=== PATIENT | female | born 1930 | race Caucasian/White ===

== ENCOUNTER 2016-05-27 20:54 | Emergency (ER) | payer MEDICARE, SELFPAY ==
[~2016-05-27 20:54] MED LIST: BACLOFEN 10MG T10 MG PO; CARAFATE1 G/10 ML PO; CYMBALTA30 MG PO; FIORICET1 EACH PO; OXECTA7.5 MG PO; PLAVIX75 MG PO; PRILOSEC20 MG PO; VESICARE5 MG PO; ZESTRIL40 MG PO
[2016-05-27 21:38] LABS: BASOPHIL 0.2 % (0-2); EOSINOPHIL 4.7 % (0-7); HCT 37.3 % (37.0-47.0); MCH 26.5 pg (25.0-31.0); MCHC 32.2 g/dL (32.0-36.0); MCV 82.5 fL (78.0-100.0); MONOCYTE 8.9 % (0-12); NEUTROPHIL 72.2 % (41-80); PLT 246 K/uL (150-400); RBC 4.52 M/uL (4.20-5.40); RDW 13.9 % (11.5-14.0); WBC 12.3 K/uL (4.0-10.5)
[2016-05-27 21:55] LABS: ALBUMIN 4.4 g/dL (3.4-4.8); BILIRUBIN - TOTAL 0.3 mg/dL (0.1-1.0); CREATININE 0.9 mg/dL (0.5-1.0); LACTIC ACID 1.7 mmol/L (0.5-2.2); POTASSIUM 5.4 mmol/L (3.5-5.1); TOTAL PROTEIN 7.4 g/dL (6.4-8.3)
[2016-05-27 23:14] LABS: BILIRUBIN NEGATIVE (NEGATIVE); BLOOD NEGATIVE Ery/uL (NEGATIVE); CLARITY SLIGHTLY HAZY (CLEAR); COLOR YELLOW (YELLOW); GLUCOSE (U) NORMAL (NORMAL); KETONE (U) NEGATIVE (NEGATIVE); LEUKOCYTES TRACE Leu/uL (NEGATIVE); NITRITE NEGATIVE (NEGATIVE); PROTEIN NEGATIVE (NEGATIVE); UROBILINOGEN 0.2 mg/dL (0.2-1.0)
[2016-05-27 23:37] LABS: BACTERIA TRACE; TRANSITIONAL EPITHELIAL CELLS RARE
== END 2016-05-28 01:06 | disposition home or self-care (01) ==
LOC: FER 20:54
PROVIDERS: Emergency Medicine Emergency Medical Services
DX: R10.13 Epigastric pain (principal); R11.2 Nausea with vomiting, unspecified; E86.9 Volume depletion, unspecified; R82.90 Unspecified abnormal findings in urine; I10 Essential (primary) hypertension; Z87.440 Personal history of urinary (tract) infections; Z88.0 Allergy status to penicillin; Z88.2 Allergy status to sulfonamides; Z88.5 Allergy status to narcotic agent; Z79.899 Other long term (current) drug therapy; Z90.49 Acquired absence of other specified parts of digestive tract
CPT/HCPCS: 36415; 36600; 71010; 71275; 80053; 81001; 82150; 82803; 83605; 83690; 84484; 85025; 87040; 87088; 93005; C9113; J1170; J2405; Q9967

== ENCOUNTER 2016-06-03 15:50 | Emergency (ER) | payer MEDICARE, SELFPAY ==
[2016-06-03 17:49] LABS: BASOPHIL 0.3 % (0-2); EOSINOPHIL 7.8 % (0-7); HGB 12.3 g/dl (12.5-16.0); LYMPHOCYTE 19.8 % (15-48); MCH 26.5 pg (25.0-31.0); MCHC 32.4 g/dL (32.0-36.0); MCV 81.7 fL (78.0-100.0); MONOCYTE 7.3 % (0-12); MPV 10.1 fL (6.0-9.5); NEUTROPHIL 64.8 % (41-80); PLT 203 K/uL (150-400); RBC 4.65 M/uL (4.20-5.40); RDW 14.2 % (11.5-14.0); WBC 6.6 K/uL (4.0-10.5)
[2016-06-03 17:56] LABS: ALBUMIN 4.1 g/dL (3.4-4.8); BILIRUBIN - TOTAL 0.2 mg/dL (0.1-1.0); CREATININE 0.7 mg/dL (0.5-1.0); GLOBULIN (CALCULATION) 3.1 g/dL (2.2-4.2); POTASSIUM 4.6 mmol/L (3.5-5.1); TOTAL PROTEIN 7.2 g/dL (6.4-8.3)
== END 2016-06-03 19:00 | disposition home or self-care (01) ==
LOC: FER 15:50
PROVIDERS: Emergency Medicine
DX: R05 Cough (principal); R06.02 Shortness of breath; R07.9 Chest pain, unspecified; E03.9 Hypothyroidism, unspecified; Z79.899 Other long term (current) drug therapy
CPT/HCPCS: 36415; 71010; 80053; 85025; 87804; 87899

== ENCOUNTER 2020-07-09 15:48 | Emergency (ER) | payer MEDICARE ==
[~2020-07-09 15:48] MED LIST changes: +ALPRAZOLAM 0.50.5 MG PO; +ANUCORT-HC25 MG PR; +BENTYL10 MG PO; +CARAFATE1 GM PO; +CEFDINIR300 MG PO; +CIPRO250 MG PO; +CIPROFLOXACIN500 M1 PO; +CYMBALTA 30MG C30 MG PO; +GOLYTELY SOLU4000 ML PO; +KEFLEX250 MG PO; +LEVAQUIN250 MG PO; +ONDANSETRON ODT4 MG SL; +PEPCID AC20 MG PO; +PERCOCET 10/321 EACH PO; +PRINIVIL10 MG PO; +PYRIDIUM200 MG PO; +VIBRAMYCIN100 MG PO; +ZOFRAN4 MG PO; +ZOFRAN8 MG PO; +ZOLOFT50 MG PO
[2020-07-09 16:30] LABS: BASOPHIL 0.3 % (0-2); EOSINOPHIL 0.4 % (0-7); HCT 42.8 % (37.0-47.0); HGB 14.2 g/dl (12.5-16.0); LYMPHOCYTE 8.2 % (15-48); MCH 28.5 pg (25.0-31.0); MCHC 33.2 g/dL (32.0-36.0); MCV 85.8 fL (78.0-100.0); MONOCYTE 2.9 % (0-12); MPV 10.3 fL (6.0-9.5); NEUTROPHIL 87.9 % (41-80); NRBC 0; PLT 270 K/uL (150-400); RBC 4.99 M/uL (4.20-5.40); RDW 12.3 % (11.5-14.0); WBC 11.5 K/uL (4.0-10.5)
[2020-07-09 16:34] LABS: INR 0.99 (0.9-1.2); PROTHROMBIN TIME 12.4 SECONDS (11.4-13.6); PTT 28.1 SECONDS (22.2-34.7)
[2020-07-09 16:39] LABS: BILIRUBIN NEGATIVE (NEGATIVE); BLOOD 1+ Ery/uL (NEGATIVE); CLARITY CLEAR (CLEAR); COLOR YELLOW (YELLOW); GLUCOSE (U) NORMAL (NORMAL); LEUKOCYTES NEGATIVE Leu/uL (NEGATIVE); NITRITE NEGATIVE (NEGATIVE); PROTEIN 1+ mg/dL (NEGATIVE); SPECIFIC GRAVITY 1.025 (1.001-1.030); UROBILINOGEN 0.2 mg/dL (0.2-1.0)
[2020-07-09 16:48] LABS: BACTERIA 1+
[2020-07-09 16:57] LABS: ALBUMIN 3.6 g/dL (3.4-5.0); BILIRUBIN - TOTAL 0.2 mg/dL (0.2-1.0); BUN/CREAT RATIO (CALC) 17.2 RATIO; CREATININE 0.99 mg/dL (0.51-0.95); GLOBULIN (CALCULATION) 4.3 g/dL; POTASSIUM 4.6 mmol/L (3.5-5.1); TOTAL PROTEIN 7.9 g/dL (6.4-8.2)
[2020-07-09 17:00] LABS: LACTIC ACID 4.3 mmol/L (0.4-1.9)
== END 2020-07-09 22:01 | disposition other institution (70) ==
LOC: FER 15:48
PROVIDERS: Emergency Medicine
DX: G40.909 Epilepsy, unspecified, not intractable, without status epilepticus (principal); I10 Essential (primary) hypertension; Z88.0 Allergy status to penicillin; Z88.1 Allergy status to other antibiotic agents; Z88.2 Allergy status to sulfonamides; Z20.822 Contact with and (suspected) exposure to COVID-19
CPT/HCPCS: 36415; 70450; 71045; 80053; 81001; 83605; 84145; 85025; 85610; 85730; 87040; 87088; 93005; 96365; 96366; 96375; J0696; J1953; J2060; J2405; J3370; J7050; U0002

== ENCOUNTER 2021-04-12 09:17 | Inpatient (IN) | payer MEDICARE ==
[~2021-04-12] VITALS: Ht 160 cm; Wt 75.3 kg
[~2021-04-12 09:17] MED LIST changes: +KEPPRA750 MG PO; +PRINIVIL20 MG PO
[2021-04-12 10:23] LABS: BASOPHIL 0.3 % (0-2); EOSINOPHIL 2.4 % (0-7); HCT 39.4 % (37.0-47.0); HGB 12.4 g/dl (12.5-16.0); LYMPHOCYTE 22.5 % (15-48); MCH 27.4 pg (25.0-31.0); MCHC 31.5 g/dL (32.0-36.0); MONOCYTE 6.5 % (0-12); MPV 10.4 fL (6.0-9.5); NEUTROPHIL 67.8 % (41-80); NRBC 0; PLT 257 K/uL (150-400); RBC 4.53 M/uL (4.20-5.40); RDW 12.9 % (11.5-14.0); WBC 6.6 K/uL (4.0-10.5)
[2021-04-12 10:46] LABS: ALBUMIN 3.3 g/dL (3.4-5.0); BILIRUBIN - TOTAL 0.4 mg/dL (0.2-1.0); BUN/CREAT RATIO (CALC) 27.6 RATIO; C-REACTIVE PROTEIN 0.6 mg/dL (<=0.90); CREATININE 1.16 mg/dL (0.51-0.95); POTASSIUM 4.8 mmol/L (3.5-5.1); TOTAL PROTEIN 7.3 g/dL (6.4-8.2)
[2021-04-12 10:52] LABS: LACTIC ACID 1.9 mmol/L (0.4-1.9)
[2021-04-12 10:59] LABS: BILIRUBIN NEGATIVE (NEGATIVE); BLOOD NEGATIVE Ery/uL (NEGATIVE); CLARITY HAZY (CLEAR); COLOR YELLOW (YELLOW); GLUCOSE (U) NORMAL (NORMAL); LEUKOCYTES 3+ Leu/uL (NEGATIVE); NITRITE NEGATIVE (NEGATIVE); PROTEIN NEGATIVE (NEGATIVE); UROBILINOGEN 0.2 mg/dL (0.2-1.0)
[2021-04-12 11:13] LABS: URINARY RBC RARE; URINARY WBC TNTC
[2021-04-12 11:14] LABS: BACTERIA 4+; SQUAMOUS EPITHELIAL CELLS RARE
[2021-04-12 11:33] LABS: CORONAVIRUS 2019 SARS-COV-2 POSITIVE (NEGATIVE)
[2021-04-12 11:34] LABS: INFLUENZA A NAA NEGATIVE (NEGATIVE)
[2021-04-12] MEDS ORDERED: KEPPRA750 MG PO ×2 (23:03→23:23)
[2021-04-12] MEDS ORDERED: EFFEXOR-XR 75 M75 MG PO (23:04)
[2021-04-12] MEDS ORDERED: MILK OF MA2400 MG/10 PO (23:05)
[2021-04-12] MEDS ORDERED: PERCOCET 10-321 EACH PO (23:06)
[2021-04-13 06:21] LABS: BASOPHIL 0.3 % (0-2); EOSINOPHIL 3.5 % (0-7); HCT 32.3 % (37.0-47.0); HGB 10.2 g/dl (12.5-16.0); LYMPHOCYTE 23.8 % (15-48); MCH 27.7 pg (25.0-31.0); MCHC 31.6 g/dL (32.0-36.0); MCV 87.8 fL (78.0-100.0); NEUTROPHIL 64.2 % (41-80); NRBC 0; PLT 185 K/uL (150-400); RBC 3.68 M/uL (4.20-5.40); RDW 12.9 % (11.5-14.0); WBC 5.7 K/uL (4.0-10.5)
[2021-04-13 06:47] LABS: BUN/CREAT RATIO (CALC) 19.1 RATIO; CREATININE 1.1 mg/dL (0.51-0.95); POTASSIUM 4.6 mmol/L (3.5-5.1)
--- NOTE | 2021-04-13 12:28 | NUR ---
JORDON WITH [facility] STATED THAT PT. MAY RETURN BACK TO [facility], BUT WILL NEED A NEW INSURANCE AUTH. SENT UPDATED CLINICALS TO [facility] DR. VELAZCO PT. JULY D/C ON SATURDAY. ATTEMPTED PHONE CALL WITH DAUGHTERS, TIMUR AND JENNY TO CONFIRM DISCHARGE PLANS.
--- NOTE | 2021-04-13 13:10 | NUR ---
PER PT DAUGHTER, FANI DING. SHE STATED THAT PT. HAS A RW AND /. IF PT REQUIRES OXYGEN SHE WOULD LIKE FOR IT TO COME FROM [facility]. TIMUR REQUESTED [facility]. MADE REFERRAL TO [facility].
--- NOTE | 2021-04-14 14:59 | NUR ---
PER PRASANNA TAVERAS LIASON WITH [facility]. THEY WILL ACCEPT PATIENT. ADVISED HER THAT THE ANTICIPATED D/C WILL BE 04/17/21.
[2021-04-15] MEDS ORDERED: KEFLEX250 MG PO (11:32)
== END 2021-04-15 13:32 | disposition home or self-care (01) | DRG 177 ==
LOC: FER 09:17 → FMS 20:32
PROVIDERS: Emergency Medicine; Nurse Practitioner; ADMIT Internal Medicine
PROC: 8E0ZXY6 Isolation (ICD-10-PCS; 2021-04-12)
PROC: XW033E5 Introduction of Remdesivir Anti-infective into Peripheral Vein, Percutaneous Approach, New Technology Group 5 (ICD-10-PCS; principal; 2021-04-13)
DX: U07.1 COVID-19 (principal); J12.82 Pneumonia due to coronavirus disease 2019; G93.41 Metabolic encephalopathy; N39.0 Urinary tract infection, site not specified; B95.4 Other streptococcus as the cause of diseases classified elsewhere; I10 Essential (primary) hypertension; I48.91 Unspecified atrial fibrillation; K21.9 Gastro-esophageal reflux disease without esophagitis; F03.90 Unspecified dementia, unspecified severity, without behavioral disturbance, psychotic disturbance, mood disturbance, and anxiety; I25.10 Atherosclerotic heart disease of native coronary artery without angina pectoris; K59.09 Other constipation; M19.90 Unspecified osteoarthritis, unspecified site; Z96.643 Presence of artificial hip joint, bilateral; Z90.49 Acquired absence of other specified parts of digestive tract; Z98.42 Cataract extraction status, left eye; Z90.710 Acquired absence of both cervix and uterus; Z98.890 Other specified postprocedural states; Z88.0 Allergy status to penicillin; Z88.2 Allergy status to sulfonamides; Z88.5 Allergy status to narcotic agent; Z79.899 Other long term (current) drug therapy
CPT/HCPCS: 36415; 71045; 80048; 80053; 81001; 83605; 83690; 84145; 85025; 86140; 87040; 87088; 93005; 94760; 97162; 97166; 97530-GP; 97535; C9399; J0696; J1170; J1650; J2405; J7030; J7050; J7120; J8540; Q9967; U0002

== ENCOUNTER 2021-05-22 11:50 | Emergency (ER) | payer MEDICARE ==
[~2021-05-22 11:50] MED LIST changes: +EFFEXOR-XR 75 M75 MG PO; +MILK OF MA2400 MG/10 PO; +PERCOCET 10-321 EACH PO
[2021-05-22] MEDS ORDERED: CEPHALEXIN500 MG PO (15:11)
[2021-05-22 15:22] LABS: BILIRUBIN NEGATIVE (NEGATIVE); BLOOD NEGATIVE Ery/uL (NEGATIVE); CLARITY CLEAR (CLEAR); COLOR YELLOW (YELLOW); GLUCOSE (U) NORMAL (NORMAL); LEUKOCYTES NEGATIVE Leu/uL (NEGATIVE); NITRITE NEGATIVE (NEGATIVE); PROTEIN NEGATIVE (NEGATIVE); UROBILINOGEN 0.2 mg/dL (0.2-1.0); pH 7.5 (5.0-9.0)
== END 2021-05-22 15:20 | disposition home or self-care (01) ==
LOC: FER 11:50
PROVIDERS: Emergency Medicine
DX: R25.3 Fasciculation (principal); T36.8X5A Adverse effect of other systemic antibiotics, initial encounter; N39.0 Urinary tract infection, site not specified; I10 Essential (primary) hypertension; I48.91 Unspecified atrial fibrillation; Z88.0 Allergy status to penicillin; Z88.2 Allergy status to sulfonamides; Z88.1 Allergy status to other antibiotic agents; Z88.6 Allergy status to analgesic agent; Z79.899 Other long term (current) drug therapy
CPT/HCPCS: 81003; 87088; 99283

== ENCOUNTER 2021-08-05 04:44 | Emergency (ER) | payer MEDICARE ==
[~2021-08-05 04:44] MED LIST changes: +CEPHALEXIN500 MG PO
[2021-08-05 05:56] LABS: BILIRUBIN NEGATIVE (NEGATIVE); BLOOD 1+ Ery/uL (NEGATIVE); CLARITY CLEAR (CLEAR); COLOR YELLOW (YELLOW); GLUCOSE (U) NORMAL (NORMAL); LEUKOCYTES 3+ Leu/uL (NEGATIVE); NITRITE POSITIVE (NEGATIVE); PROTEIN NEGATIVE (NEGATIVE); SPECIFIC GRAVITY <=1.005 (1.001-1.030); UROBILINOGEN 0.2 mg/dL (0.2-1.0); pH 6.5 (5.0-9.0)
[2021-08-05 06:05] LABS: BACTERIA 4+; URINARY WBC TNTC
[2021-08-05 07:03] LABS: BASOPHIL 0.3 % (0-2); EOSINOPHIL 5.2 % (0-7); HCT 34.4 % (37.0-47.0); HGB 11.4 g/dl (12.5-16.0); LYMPHOCYTE 23.4 % (15-48); MCH 29.5 pg (25.0-31.0); MCHC 33.1 g/dL (32.0-36.0); MCV 89.1 fL (78.0-100.0); MONOCYTE 7.3 % (0-12); MPV 9.4 fL (6.0-9.5); NEUTROPHIL 63.2 % (41-80); NRBC 0; PLT 215 K/uL (150-400); RBC 3.86 M/uL (4.20-5.40); RDW 13.6 % (11.5-14.0); WBC 6.9 K/uL (4.0-10.5)
[2021-08-05 07:23] LABS: ALBUMIN 3.3 g/dL (3.4-5.0); BILIRUBIN - TOTAL 0.2 mg/dL (0.2-1.0); BUN/CREAT RATIO (CALC) 23.6 RATIO; CREATININE 1.23 mg/dL (0.51-0.95); GLOBULIN (CALCULATION) 3.7 g/dL; POTASSIUM 4.4 mmol/L (3.5-5.1)
[2021-08-05] MEDS ORDERED: CIPRO250 MG PO (08:07)
== END 2021-08-05 11:10 | disposition home or self-care (01) ==
LOC: FER 04:44
PROVIDERS: Internal Medicine
DX: N39.0 Urinary tract infection, site not specified (principal); I10 Essential (primary) hypertension; Z88.0 Allergy status to penicillin; Z88.1 Allergy status to other antibiotic agents; Z88.2 Allergy status to sulfonamides; Z88.5 Allergy status to narcotic agent; Z79.899 Other long term (current) drug therapy
CPT/HCPCS: 36415; 80053; 81001; 84145; 85025; 87076; 87088; 87186; J0696; J2405; J3010; J7030

== ENCOUNTER 2021-09-06 12:01 | Emergency (ER) | payer MEDICARE ==
[2021-09-06 13:10] LABS: CORONAVIRUS 2019 SARS-COV-2 POSITIVE (NEGATIVE); INFLUENZA A NAA NEGATIVE (NEGATIVE)
== END 2021-09-06 13:57 | disposition home or self-care (01) ==
LOC: FER 12:01
PROVIDERS: Emergency Medicine
DX: U07.1 COVID-19 (principal); Z88.0 Allergy status to penicillin; Z88.1 Allergy status to other antibiotic agents; Z88.2 Allergy status to sulfonamides; Z88.5 Allergy status to narcotic agent; Z28.310 Unvaccinated for COVID-19
CPT/HCPCS: 71045; U0002

== ENCOUNTER 2021-09-17 17:20 | Emergency (ER) | payer MEDICARE ==
[2021-09-17 18:49] LABS: BILIRUBIN NEGATIVE (NEGATIVE); BLOOD TRACE-INTACT Ery/uL (NEGATIVE); CLARITY CLEAR (CLEAR); COLOR YELLOW (YELLOW); GLUCOSE (U) NORMAL (NORMAL); LEUKOCYTES NEGATIVE Leu/uL (NEGATIVE); NITRITE NEGATIVE (NEGATIVE); PROTEIN NEGATIVE (NEGATIVE); UROBILINOGEN 0.2 mg/dL (0.2-1.0)
[2021-09-17 18:56] LABS: AMORPHOUS URATES CRYSTALS MODERATE; BACTERIA TRACE; URINARY WBC RARE
== END 2021-09-17 20:34 | disposition home or self-care (01) ==
LOC: FER 17:20
PROVIDERS: Physician Assistant
DX: M54.50 Low back pain, unspecified (principal); G89.29 Other chronic pain; I25.10 Atherosclerotic heart disease of native coronary artery without angina pectoris; I10 Essential (primary) hypertension; Z86.16 Personal history of COVID-19; Z88.0 Allergy status to penicillin; Z88.1 Allergy status to other antibiotic agents; Z88.2 Allergy status to sulfonamides; Z88.5 Allergy status to narcotic agent; Z79.899 Other long term (current) drug therapy
CPT/HCPCS: 72131; 81001

== ENCOUNTER 2021-09-19 22:27 | Emergency (ER) | payer MEDICARE ==
[2021-09-19 23:04] LABS: BASOPHIL 0.2 % (0-2); HCT 32.4 % (37.0-47.0); HGB 10.6 g/dl (12.5-16.0); LYMPHOCYTE 19.8 % (15-48); MCH 29.4 pg (25.0-31.0); MCHC 32.7 g/dL (32.0-36.0); MCV 89.8 fL (78.0-100.0); MONOCYTE 5.5 % (0-12); MPV 9.2 fL (6.0-9.5); NEUTROPHIL 69.1 % (41-80); NRBC 0; PLT 184 K/uL (150-400); RBC 3.61 M/uL (4.20-5.40); WBC 8.1 K/uL (4.0-10.5)
[2021-09-19 23:35] LABS: INR 0.99 (0.9-1.2); PROTHROMBIN TIME 12.8 SECONDS (11.9-13.9); PTT 27.6 SECONDS (24.9-34.6)
[2021-09-20 00:14] LABS: ALBUMIN 2.9 g/dL (3.4-5.0); BILIRUBIN - TOTAL 0.3 mg/dL (0.2-1.0); BUN/CREAT RATIO (CALC) 21.2 RATIO; CREATININE 1.13 mg/dL (0.51-0.95); GLOBULIN (CALCULATION) 3.6 g/dL; POTASSIUM 4.4 mmol/L (3.5-5.1); TOTAL PROTEIN 6.5 g/dL (6.4-8.2)
[2021-09-20] MEDS ORDERED: PEPCID40 MG PO (04:13)
[2021-09-20 04:31] LABS: BILIRUBIN NEGATIVE (NEGATIVE); BLOOD NEGATIVE Ery/uL (NEGATIVE); CLARITY CLEAR (CLEAR); COLOR YELLOW (YELLOW); GLUCOSE (U) NORMAL (NORMAL); LEUKOCYTES TRACE Leu/uL (NEGATIVE); NITRITE NEGATIVE (NEGATIVE); PROTEIN NEGATIVE (NEGATIVE); UROBILINOGEN 0.2 mg/dL (0.2-1.0); pH 7.5 (5.0-9.0)
[2021-09-20 04:42] LABS: SQUAMOUS EPITHELIAL CELLS RARE; URINARY RBC RARE; URINARY WBC RARE
== END 2021-09-20 05:45 | disposition home or self-care (01) ==
LOC: FER 22:27
PROVIDERS: Internal Medicine
DX: R07.89 Other chest pain (principal); I12.9 Hypertensive chronic kidney disease with stage 1 through stage 4 chronic kidney disease, or unspecified chronic kidney disease; N18.30 Chronic kidney disease, stage 3 unspecified; Z88.0 Allergy status to penicillin; Z88.2 Allergy status to sulfonamides; Z88.6 Allergy status to analgesic agent; Z28.310 Unvaccinated for COVID-19
CPT/HCPCS: 36415; 71045; 80053; 81001; 83690; 84484; 85025; 85610; 85730; 87088; 93005

== ENCOUNTER 2021-09-29 11:15 | Day surgery (SDCO) | payer MEDICARE ==
[~2021-09-29] VITALS: Ht 170.2 cm; Wt 81.4 kg
[~2021-09-29 11:15] MED LIST changes: +PEPCID40 MG PO
[2021-09-29 12:19] LABS: BASOPHIL 0.3 % (0-2); EOSINOPHIL 1.8 % (0-7); HCT 34.6 % (37.0-47.0); HGB 11.4 g/dl (12.5-16.0); LYMPHOCYTE 15.8 % (15-48); MCHC 32.9 g/dL (32.0-36.0); MONOCYTE 6.7 % (0-12); MPV 9.1 fL (6.0-9.5); NRBC 0; PLT 267 K/uL (150-400); RBC 3.93 M/uL (4.20-5.40); RDW 13.1 % (11.5-14.0); WBC 9.5 K/uL (4.0-10.5)
[2021-09-29 12:56] LABS: ALBUMIN 3.5 g/dL (3.4-5.0); BILIRUBIN - TOTAL 0.5 mg/dL (0.2-1.0); BUN/CREAT RATIO (CALC) 24.1 RATIO; CREATININE 1.37 mg/dL (0.51-0.95); POTASSIUM 4.3 mmol/L (3.5-5.1); TOTAL PROTEIN 7.5 g/dL (6.4-8.2)
[2021-09-29] MEDS ORDERED: PAXIL10 MG PO (20:55)
[2021-09-30 02:40] LABS: BILIRUBIN NEGATIVE (NEGATIVE); BLOOD NEGATIVE Ery/uL (NEGATIVE); CLARITY CLEAR (CLEAR); COLOR YELLOW (YELLOW); GLUCOSE (U) NORMAL (NORMAL); LEUKOCYTES NEGATIVE Leu/uL (NEGATIVE); NITRITE NEGATIVE (NEGATIVE); PROTEIN NEGATIVE (NEGATIVE); UROBILINOGEN 0.2 mg/dL (0.2-1.0)
[2021-09-30 08:16] LABS: HCT 30.7 % (37.0-47.0); HGB 9.9 g/dl (12.5-16.0); MCH 29.2 pg (25.0-31.0); MCHC 32.2 g/dL (32.0-36.0); MCV 90.6 fL (78.0-100.0); MPV 9.1 fL (6.0-9.5); RBC 3.39 M/uL (4.20-5.40); RDW 13.2 % (11.5-14.0); WBC 5.3 K/uL (4.0-10.5)
[2021-09-30] MEDS ORDERED: EFFEXOR-XR 75 M75 MG PO (09:27)
[2021-09-30 09:57] LABS: IRON % SATURATION 25.5 %SAT (20-50)
[2021-09-30 10:12] LABS: CREATININE 1.3 mg/dL (0.51-0.95); POTASSIUM 4.9 mmol/L (3.5-5.1)
[2021-09-30] MEDS ORDERED: MIRALAX17 GM PO (11:35)
[2021-09-30] MEDS ORDERED: ANUCORT-HC25 MG PR (11:35)
[2021-09-30] MEDS ORDERED: SENOKOT8.6 MG PO (11:35)
== END 2021-09-30 13:03 | disposition home or self-care (01) ==
LOC: FER 11:15 → FMS 19:25
PROVIDERS: Emergency Medicine; Nurse Practitioner Acute Care; ADMIT Internal Medicine
DX: K56.41 Fecal impaction (principal); E87.1 Hypo-osmolality and hyponatremia; I12.9 Hypertensive chronic kidney disease with stage 1 through stage 4 chronic kidney disease, or unspecified chronic kidney disease; N18.30 Chronic kidney disease, stage 3 unspecified; K62.89 Other specified diseases of anus and rectum; U07.1 COVID-19; D64.9 Anemia, unspecified; L30.4 Erythema intertrigo; R41.0 Disorientation, unspecified; M25.552 Pain in left hip; M25.551 Pain in right hip; I25.10 Atherosclerotic heart disease of native coronary artery without angina pectoris; M19.90 Unspecified osteoarthritis, unspecified site; K21.9 Gastro-esophageal reflux disease without esophagitis; R56.9 Unspecified convulsions; Z87.891 Personal history of nicotine dependence; Z88.5 Allergy status to narcotic agent; Z88.0 Allergy status to penicillin; Z88.2 Allergy status to sulfonamides
CPT/HCPCS: 36415; 80048; 80053; 81003; 82150; 82728; 83540; 83550; 83690; 85025; 94010; G0378; J1170; J1650; J2270; J2405; J7030; Q9967; U0002

== ENCOUNTER 2021-10-06 16:15 | Emergency (ER) | payer MEDICARE ==
[~2021-10-06 16:15] MED LIST changes: +MIRALAX17 GM PO; +PAXIL10 MG PO; +SENOKOT8.6 MG PO
[2021-10-06 17:08] LABS: BASOPHIL 0.5 % (0-2); EOSINOPHIL 6.8 % (0-7); HCT 32.7 % (37.0-47.0); HGB 10.8 g/dl (12.5-16.0); MCH 29.1 pg (25.0-31.0); MCV 88.1 fL (78.0-100.0); MONOCYTE 8.7 % (0-12); MPV 9.5 fL (6.0-9.5); NEUTROPHIL 52.8 % (41-80); NRBC 0; PLT 281 K/uL (150-400); RBC 3.71 M/uL (4.20-5.40); RDW 13.2 % (11.5-14.0); WBC 5.7 K/uL (4.0-10.5)
[2021-10-06 17:09] LABS: BILIRUBIN NEGATIVE (NEGATIVE); BLOOD 2+ Ery/uL (NEGATIVE); CLARITY CLEAR (CLEAR); COLOR YELLOW (YELLOW); GLUCOSE (U) NORMAL (NORMAL); LEUKOCYTES 2+ Leu/uL (NEGATIVE); NITRITE NEGATIVE (NEGATIVE); PROTEIN NEGATIVE (NEGATIVE); UROBILINOGEN 0.2 mg/dL (0.2-1.0); pH 6.5 (5.0-9.0)
[2021-10-06 17:30] LABS: AMORPHOUS URATES CRYSTALS MODERATE; BACTERIA 1+
[2021-10-06 17:41] LABS: ALBUMIN 3.3 g/dL (3.4-5.0); BILIRUBIN - TOTAL 0.3 mg/dL (0.2-1.0); BUN/CREAT RATIO (CALC) 20.4 RATIO; CREATININE 1.08 mg/dL (0.51-0.95); GLOBULIN (CALCULATION) 4.7 g/dL; POTASSIUM 4.3 mmol/L (3.5-5.1)
[2021-10-06] MEDS ORDERED: MIRALAX17 GM PO (18:43)
== END 2021-10-06 21:24 | disposition home or self-care (01) ==
LOC: FER 16:15
PROVIDERS: Emergency Medicine
DX: K59.00 Constipation, unspecified (principal); R10.9 Unspecified abdominal pain; I12.9 Hypertensive chronic kidney disease with stage 1 through stage 4 chronic kidney disease, or unspecified chronic kidney disease; N18.30 Chronic kidney disease, stage 3 unspecified; E66.9 Obesity, unspecified; F03.90 Unspecified dementia, unspecified severity, without behavioral disturbance, psychotic disturbance, mood disturbance, and anxiety; Z88.0 Allergy status to penicillin; Z88.2 Allergy status to sulfonamides; Z88.5 Allergy status to narcotic agent
CPT/HCPCS: 36415; 80053; 81001; 85025; 87088

== ENCOUNTER 2021-10-16 03:26 | Emergency (ER) | payer MEDICARE | END 2021-10-16 04:31 | disposition home or self-care (01) | LOC: FER 03:26 | DX: M25.551 Pain in right hip (principal); M25.552 Pain in left hip; G89.29 Other chronic pain; I10 Essential (primary) hypertension; Z88.0 Allergy status to penicillin; Z88.2 Allergy status to sulfonamides; Z88.6 Allergy status to analgesic agent; Z79.899 Other long term (current) drug therapy | CPT/HCPCS: 72170 ==